=== PATIENT | male | born 1935 | race Caucasian/White ===

== ENCOUNTER 2016-11-19 13:17 | Outpatient (CLI) | payer MEDICARE, OTHER | END 2016-11-19 13:18 | disposition home or self-care (01) | DX: N40.0 Benign prostatic hyperplasia without lower urinary tract symptoms (principal) ==

== ENCOUNTER 2017-02-20 08:48 | Outpatient (CLI) | payer MEDICARE, OTHER | END 2017-02-20 08:49 | disposition home or self-care (01) | LOC: LAB.N 08:48 | PROVIDERS: ATTEND Internal Medicine Cardiovascular Disease | DX: I49.3 Ventricular premature depolarization (principal); I10 Essential (primary) hypertension; I47.2 Ventricular tachycardia; R00.1 Bradycardia, unspecified | CPT/HCPCS: 36415; 83735; 84443 ==

== ENCOUNTER 2017-04-07 09:24 | Outpatient (CLI) | payer MEDICARE, OTHER | END 2017-04-07 09:25 | disposition home or self-care (01) | LOC: SC 09:24 | PROVIDERS: ATTEND Internal Medicine Pulmonary Disease | DX: G47.30 Sleep apnea, unspecified (principal); G47.10 Hypersomnia, unspecified; R06.83 Snoring; G47.8 Other sleep disorders | CPT/HCPCS: 99203; G0463; 99212 ==

== ENCOUNTER 2017-05-04 19:24 | Outpatient (CLI) | payer MEDICARE, OTHER | END 2017-05-04 19:25 | disposition home or self-care (01) | LOC: SC 19:24 | PROVIDERS: ATTEND Internal Medicine Pulmonary Disease | DX: G47.33 Obstructive sleep apnea (adult) (pediatric) (principal); R00.1 Bradycardia, unspecified; G47.61 Periodic limb movement disorder | CPT/HCPCS: 95810 ==

== ENCOUNTER 2017-06-03 09:17 | Outpatient (CLI) | payer MEDICARE, OTHER | END 2017-06-03 09:18 | disposition home or self-care (01) | LOC: SC 09:17 | PROVIDERS: ATTEND Nurse Practitioner Family | DX: G47.33 Obstructive sleep apnea (adult) (pediatric) (principal); R00.1 Bradycardia, unspecified; I49.3 Ventricular premature depolarization; G47.61 Periodic limb movement disorder | CPT/HCPCS: 99214; G0463; 99212 ==

== ENCOUNTER 2017-08-06 08:40 | Outpatient (CLI) | payer MEDICARE, OTHER | END 2017-08-06 08:41 | disposition home or self-care (01) | LOC: SC 08:40 | PROVIDERS: ATTEND Nurse Practitioner Family | DX: G47.33 Obstructive sleep apnea (adult) (pediatric) (principal) | CPT/HCPCS: 99214; G0463; 99212 ==

== ENCOUNTER 2018-01-15 07:20 | Day surgery (SDC) | payer MEDICARE, OTHER ==
[2018-01-15] MEDS ORDERED: TIMOLOL 0.5% OPHTH DROPS ONE (07:22)
[2018-01-15] MEDS ORDERED: BRIMONIDINE 0.2% OPHTH DROPS 5 ML ONE (07:22)
[2018-01-15] MEDS ORDERED: BSS/LIDOCAINE/EPINEPHRINE 1 ML SYRINGE ONE ×2 (07:23→07:29)
[2018-01-15] MEDS ORDERED: KETOROLAC 0.45% OPHTH DROPS ONE (07:42)
[2018-01-15] MEDS ORDERED: PROPARACAINE 0.5% OPHTH DROPS 15 ML ONE (07:42)
[2018-01-15] MEDS ORDERED: PHENYLEPHRINE 2.5% OPHTH 2 ML DROPS ONE (07:42)
[2018-01-15] MEDS ORDERED: CYCLOPENTOLATE 1% OPHTH DROPS 2 ML ONE (07:42)
[2018-01-15] MEDS ORDERED: LACTATED RINGERS 500 ML IV ONE (07:56)
[2018-01-15] MEDS ORDERED: KETOROLAC 0.45% OPHTH DROPS LEFTEYE ONE (08:05)
[2018-01-15] MEDS ORDERED: CYCLOPENTOLATE 1% OPHTH DROPS 2 ML LEFTEYE ONE (08:05)
[2018-01-15] MEDS ORDERED: PHENYLEPHRINE 2.5% OPHTH 2 ML DROPS LEFTEYE ONE (08:05)
[2018-01-15] MEDS ORDERED: PROPARACAINE 0.5% OPHTH DROPS 15 ML LEFTEYE ONE ×2 (08:05→09:18)
[2018-01-15] MEDS ORDERED: BRIMONIDINE 0.2% OPHTH DROPS 5 ML OPTH ONE (09:15)
[2018-01-15] MEDS ORDERED: EPINEPHrine 1 MG/ML AMP IR ONE (09:15)
[2018-01-15] MEDS ORDERED: CHONDR SULF/HYALURONATE SYRINGE IO ONE (09:16)
[2018-01-15] MEDS ORDERED: BSS/LIDOCAINE/EPINEPHRINE 1 ML SYRINGE IO ONE ×2 (09:16)
[2018-01-15] MEDS ORDERED: TIMOLOL 0.5% OPHTH DROPS OPTH ONE (09:16)
[2018-01-15] MEDS ORDERED: TRIAMCIN/MOXIFLOX/VANCO 1 ML VIAL IO ONE ×2 (09:17)
[2018-01-15] MEDS ORDERED: MIDAZOLAM 2 MG/2 ML VIAL IVP ONE (09:30)
[2018-01-15 10:29] VITALS: BP 145/84
--- NOTE | 2018-01-15 10:29 | OPERATIVE REPORT ---
DATE OF SERVICE: 01/15/2018 Physician: Cornelio Zaragoza MD PREOPERATIVE DIAGNOSIS: Visually significant cataract, left eye. Cataract surgery was performed on the right eye in 2013 by another surgeon. POSTOPERATIVE DIAGNOSIS: Visually significant cataract, left eye. Cataract surgery was performed on the right eye in 2012 by another surgeon. PROCEDURE PERFORMED: Phacoemulsification with posterior chamber intraocular lens implant, left eye. SURGEON: Cornelio Zaragoza MD ANESTHESIA: Monitored anesthesia care. COMPLICATIONS: None. OPERATIVE INDICATIONS: This is an 82-year-old man with progressive vision loss in the left eye due to 2+ nuclear sclerotic and 2+ cortical cataract. Best corrected visual acuity was 20/25 with glare to 20/400 in the left eye. Indications for surgery are overall decrease in vision, difficulty reading, difficulty seeing street signs, difficulty driving in low light or at night, difficulty driving at night because of headlights from other vehicles. He was consented at length concerning risks and benefits of cataract surgery, after which he expressed desire to proceed with surgery. OPERATIVE PROCEDURE: The patient was taken into OR #3 and placed under monitored anesthesia care. A surgical time-out was conducted confirming correct patient, correct procedure and correct surgical site. He was placed under the LenSx laser and his right eye docked to the laser interface. The right eye was docked first because the patient wanted to correct astigmatism in the right eye first before performing Laser Assisted Cataract Surgery in the left eye with astigmatism correction in that eye. The laser performed 2 arcuate keratotomy incisions in about 4 seconds on the right eye cornea (non-penetrating). The laser was then docked to his left eye, at which time the laser performed the capsulotomy, lens softening, phaco wounds and arcuate keratotomy incisions. He was then moved to the operating microscope , given topical anesthesia and prepped and draped in the usual sterile fashion. The eye was entered at the 6 and 3 o'clock positions. Intracameral Shugarcaine was injected into the anterior chamber, followed by Viscoat. The capsulorrhexis flap created by the LenSx laser was removed from the anterior chamber, and the nucleus was hydrodissected and phacoemulsified. Cortex was evacuated using automated infusion and aspiration. Provisc was injected in capsular bag and a FIV566, 21.0 diopter toric intraocular lens was inserted into the bag and rotated to axis 154. This is a toric astigmatism correcting IOL. Approximately 0.8 mL of a mixture of triamcinolone, moxifloxacin, and vancomycin was injected subconjunctivally in the superior quadrant for infection , inflammation prophylaxis. I and A was used to evacuate the viscoelastic material. The eye was inflated to physiologic pressure using balanced salt solution and found to be watertight, and the lens was again verified to be at about axis 154. The patient was taken from the operating room in good condition and given postop instructions. TD: 01/15/2018 10:16 GERALD
== END 2018-01-15 07:21 | disposition home or self-care (01) ==
LOC: SDS 07:20
PROVIDERS: ATTEND Ophthalmology
PROC: 08RK3JZ Replacement of Left Lens with Synthetic Substitute, Percutaneous Approach (ICD-10-PCS; principal; 2018-01-15 08:30)
DX: H25.812 Combined forms of age-related cataract, left eye (principal); G47.30 Sleep apnea, unspecified; H52.202 Unspecified astigmatism, left eye
CPT/HCPCS: 66984; A9270; V2632; V2787

== ENCOUNTER 2018-01-21 08:50 | Outpatient (CLI) | payer MEDICARE, OTHER | END 2018-01-21 08:51 | disposition home or self-care (01) | LOC: SC 08:50 | PROVIDERS: ATTEND Nurse Practitioner Family | DX: G47.33 Obstructive sleep apnea (adult) (pediatric) (principal) | CPT/HCPCS: 99213 ==

== ENCOUNTER 2018-06-11 07:43 | Day surgery (SDC) | payer MEDICARE, OTHER ==
[~2018-06-11 07:43] MED LIST: BRIMONIDINE 0.2% OPHTH DROPS 5 ML ONE; BSS/LIDOCAINE/EPINEPHRINE 1 ML SYRINGE ONE; CYCLOPENTOLATE 1% OPHTH DROPS 2 ML ONE; EPINEPHrine 1 MG/ML AMP ONE; KETOROLAC 0.45% OPHTH DROPS ONE; PHENYLEPHRINE 2.5% OPHTH 2 ML DROPS ONE; PROPARACAINE 0.5% OPHTH DROPS 15 ML ONE; TIMOLOL 0.5% OPHTH DROPS ONE; TRIAMCIN/MOXIFLOX OPHTHALMIC 0.6 ML VIAL IO ONE; VANCOMYCIN OPHTHALMI 8MG/0.8ML 8 MG/0.8 ML SYRINGE IO ONE
[2018-06-11] MEDS ORDERED: TRIAMCINOLONE PF 40 MG/ML VIAL ONE (08:31)
--- NOTE | 2018-06-11 08:38 | ANESTHESIA ---
Pre-Anesthesia VS, & Labs - Diagnosis left eye vitreous chamber prolapse - Procedure left vitrectomy anterior chamber Vital Signs: 159/69 76 16 96% 36.3 Height 6 ft Weight (kg) 88.6 kg 6ft 88.6 kg - NPO >8 hours Home Medications and Allergies Home Medications: Ambulatory Orders No Known Home Medications 06/10/18 No Known Home Medications 06/10/18 Allergies/Adverse Reactions: Allergies Allergy/AdvReac Type Severity Reaction Status Date / Time hydrocodone bitartrate * Allergy Itching Verified 06/11/18 09:00 [From Vicodin] Anes History & Medical History - Anesthetic History Anesthesia Complications: reports: No previous complications - Medical History Cardiovascular: reports: Arrhythmia (patient states he was told he has PVC's), Other Pulmonary: reports: Sleep apnea (positioning device) Gastrointestinal: reports: Other Urinary: reports: None Musculoskeletal: reports: None Endocrine/Autoimmune: reports: None Skin: reports: Eczema, Other Smoking Status: Never smoker - Surgical History General: Colonoscopy, Other Eyes Ears Nose Throat (EENT): Cataracts Orthopedic: Hip replacement, Spine surgery (cervical fusion) Exam General: Alert, Oriented x3 Dental: WNL Mouth Openin Fingerbreadth Mallampati classification: II Thyromental Distance: less than 4 cm Respiratory: Lungs clear Cardiovascular: Regular rate, Normal S1, Normal S2 Mental/Cognitive Status: Alert/Oriented X3 Plan Anesthesia Type: MAC Consent for Procedure(s) Verified and Reviewed: Yes Code Status: Attempt Resuscitation ASA classification: 2-Mild systemic disease Is this case an emergency?: No
[2018-06-11] MEDS ORDERED: PROPARACAINE 0.5% OPHTH DROPS 15 ML LEFTEYE ONE (08:44)
[2018-06-11] MEDS ORDERED: PHENYLEPHRINE 2.5% OPHTH 2 ML DROPS LEFTEYE ONE (08:44)
[2018-06-11] MEDS ORDERED: KETOROLAC 0.45% OPHTH DROPS LEFTEYE ONE (08:44)
[2018-06-11] MEDS ORDERED: CYCLOPENTOLATE 1% OPHTH DROPS 2 ML LEFTEYE ONE (08:44)
[2018-06-11] MEDS ORDERED: LACTATED RINGERS 500 ML IV ONE (08:58)
[2018-06-11] MEDS ORDERED: MIDAZOLAM 2 MG/2 ML VIAL IVP ONE (09:30)
[2018-06-11] MEDS ORDERED: CARBACHOL 0.01% 1.5 ML VIAL IO ONE (09:31)
[2018-06-11] MEDS ORDERED: BSS/LIDOCAINE/EPINEPHRINE 1 ML SYRINGE IO ONE (09:32)
[2018-06-11] MEDS ORDERED: EPINEPHrine 1 MG/ML AMP IR ONE (09:32)
[2018-06-11] MEDS ORDERED: TIMOLOL 0.5% OPHTH DROPS OPTH ONE (09:32)
[2018-06-11] MEDS ORDERED: BRIMONIDINE 0.2% OPHTH DROPS 5 ML OPTH ONE (09:32)
[2018-06-11] MEDS ORDERED: CHONDR SULF/HYALURONATE SYRINGE IO ONE (09:32)
[2018-06-11 10:01] VITALS: BP 128/79
--- NOTE | 2018-06-11 13:04 | OPERATIVE REPORT ---
DATE OF SERVICE: 06/11/2018 Physician: Cornelio Zaragoza MD PREOPERATIVE DIAGNOSIS: Vitreous prolapse into the anterior chamber of the left eye, causing visual disturbance. POSTOPERATIVE DIAGNOSIS: Vitreous prolapse into the anterior chamber of the left eye, causing visual disturbance. PROCEDURE PERFORMED: Anterior vitrectomy of prolapsed vitreous in the left eye. SURGEON: Cornelio Zaragoza MD ANESTHESIA: Monitored anesthesia care. COMPLICATIONS: None. OPERATIVE INDICATIONS: This is an 83-year-old man who reports a constant visual disturbance, like looking through cotton candy, of the left eye since cataract surgery performed on January 15, 2018. With everything else being normal, to include lens clarity, retina and cornea, it was decided to perform an anterior vitrectomy to remove the vitreous, which was stained with pigment. He was consented at length concerning risks and benefits of anterior vitrectomy, after which he expressed a desire to proceed with surgery. DESCRIPTION OF PROCEDURE: The patient was taken into OR #3 and placed under monitored anesthesia care. A surgical timeout was conducted confirming correct patient, correct procedure, and correct surgical site. He was given topical anesthesia and then prepped and draped in usual sterile fashion. The eye was entered with a 1 mm keratome inferotemporally and another one superotemporally. Intracameral Shugarcaine was injected into the anterior chamber through one of these wounds. This was followed by a Triesence in order to stain the vitreous in the anterior chamber. The anterior chamber was flushed to leave just vitreous stained with Triesence. A vitrectomy device in bimanual mode was introduced. The vitreous was cut and aspirated, using first a cut-IA and then later IA-cut. Once the vitreous had been removed from the anterior chamber the wounds were hydrated. Also of note inferiorly, there were some strands of what looked like strands of capsular remnants. This must have been where the lens capsule had been disrupted and was probably the source of the vitreous. Miostat was injected into the anterior chamber to bring down the pupil. The IOL looked very stable and well centered. Approximately 0.8 mL of a mixture of triamcinolone, moxifloxacin, and vancomycin was injected subconjunctivally in the superior quadrant for infection and inflammation prophylaxis. The eye was tested to be at physiologic pressure and watertight. The patient was taken from the operating room in good condition and given postoperative instructions. TD: 06/11/2018 09:50 MTDD
== END 2018-06-11 07:44 | disposition home or self-care (01) ==
LOC: SDS 07:43
PROVIDERS: ATTEND Ophthalmology
PROC: 08B53ZZ Excision of Left Vitreous, Percutaneous Approach (ICD-10-PCS; principal; 2018-06-11 09:00)
DX: H43.02 Vitreous prolapse, left eye (principal); H02.20 Unspecified lagophthalmos; I49.3 Ventricular premature depolarization; G47.33 Obstructive sleep apnea (adult) (pediatric); Z85.038 Personal history of other malignant neoplasm of large intestine; Z98.42 Cataract extraction status, left eye
CPT/HCPCS: 67005; A9270; J3300; J3490

== ENCOUNTER 2018-06-30 09:25 | Outpatient (CLI) | payer MEDICARE, OTHER ==
[2018-06-30 12:20] LABS: BASOPHILS # (AUTO) 0.1 10^3/uL (0.0-0.1); EOSINOPHILS # (AUTO) 0.1 10^3/uL (0.0-0.7); EOSINOPHILS % (AUTO) 1.9 %; HGB - HEMOGLOBIN 13.2 g/dL (14.0-18.0); LYMPHOCYTES # (AUTO) 1.4 10^3/uL (1.5-3.5); LYMPHOCYTES % (AUTO) 21.9 %; MEAN CORPUSCULAR HEMOGLOBIN 32.4 pg (27.0-31.0); MEAN CORPUSCULAR HGB CONC 34.8 g/dL (32.0-36.0); MEAN CORPUSCULAR VOLUME 92.9 fL (80.0-94.0); MEAN PLATELET VOLUME 9.4 fL (7.4-11.4); MONOCYTES # (AUTO) 0.7 10^3/uL (0.0-1.0); MONOCYTES % (AUTO) 10.3 %; NEUTROPHILS # (AUTO) 4.2 10^3/uL (1.5-6.6); NEUTROPHILS % (AUTO) 64.9 %; PLT - PLATELET COUNT 174 10^3/uL (130-450); RED BLOOD COUNT 4.09 10^6/uL (4.70-6.10); RED CELL DISTRIBUTION WIDTH 14.2 % (12.0-15.0); WHITE BLOOD COUNT 6.5 x10^3/uL (4.8-10.8)
[2018-06-30 12:39] LABS: ALBUMIN 4.2 g/dL (3.2-5.5); ALBUMIN/GLOBULIN RATIO 1.6 (1.0-2.2); ALKALINE PHOSPHATASE 52 IU/L (42-121); ALT ALANINE AMINOTRANSFERASE 17 IU/L (10-60); AST ASPARTATE AMINOTRANSFERASE 23 IU/L (10-42); BILIRUBIN,TOTAL 0.6 mg/dL (0.2-1.0); BUN - BLOOD UREA NITROGEN 20 mg/dL (6-20); CALCIUM 9.2 mg/dL (8.5-10.3); CARBON DIOXIDE - CO2 26 mmol/L (21-32); CHLORIDE 104 mmol/L (101-111); CHOL/HDL RATIO 3.3 (<5.0); CHOLESTEROL 194 mg/dL; GFR - MDRD 71 (>89); GLUCOSE 103 mg/dL (70-100); HDL CHOLESTEROL 58 mg/dL; LDL CHOLESTEROL,CALCULATED 113 mg/dL; LDL/HDL RATIO 1.9 (<3.6); SODIUM 137 mmol/L (135-145); TOTAL PROTEIN 6.9 g/dL (6.7-8.2); VLDL CHOLESTEROL 23 mg/dL
[2018-06-30 12:45] LABS: PSA FREE 0.15 ng/mL (0.16-2.81)
[2018-06-30 12:46] LABS: PSA TOTAL 0.49 ng/mL (0.000-2.000)
== END 2018-06-30 09:26 | disposition home or self-care (01) ==
LOC: LAB.N 09:25
PROVIDERS: ATTEND Family Medicine
DX: D64.9 Anemia, unspecified (principal); I10 Essential (primary) hypertension; Z85.038 Personal history of other malignant neoplasm of large intestine; R00.1 Bradycardia, unspecified; N40.0 Benign prostatic hyperplasia without lower urinary tract symptoms
CPT/HCPCS: 36415; 80053; 80061; 82378; 83721; 84154; 84443; 85025

== ENCOUNTER 2019-03-26 12:03 | Outpatient (CLI) | payer MEDICARE, OTHER ==
--- NOTE | 2019-03-27 17:05 | MRI Report ---
Reason: HX OF HIP REPLACEMENT, LEFT, HIP JOINT PAIN, LEFT Procedure Date: 03/26/2019 Accession Number: [id number] / [id number] Procedure: MRI - Hip LT W/O CPT Code: FULL RESULT: EXAM: LEFT HIP MRI WITHOUT CONTRAST EXAM DATE: 03/26/2019 01:09 PM. CLINICAL HISTORY: History of hip replacement, left. Hip joint pain, left. COMPARISON: LT HIP 06/06/2006 6:02 PM. TECHNIQUE: Multiplanar, multisequence T1-weighted and fluid-sensitive, small ptord-sb-cwjo sequences of the hip and large gwhof-ts-hmbc sequences of the pelvis without contrast. Other: None. FINDINGS: Bones: Left hip arthroplasty with moderate metallic artifact. Visualized bony pelvis and proximal femora otherwise appear normal within limits of metal artifact. No fracture or marrow edema. Left Hip: Alignment normal within limits of metal artifact. Visualized bony structures around the edges of the metal artifact appear unremarkable. Left greater trochanter bursitis with focal fluid signal near the greater trochanter bursa. Other Joints: Mild right hip degenerative joint disease and greater trochanteric bursitis. Moderate L5-S1 degenerative disk disease. Musculature: No edema or fatty atrophy. The gluteus medius and minimus tendons are normal. The visualized hamstring tendons are normal. The ischiofemoral space is normal. Pelvic Cavity: The visualized viscera are unremarkable. No lymphadenopathy. No free fluid in the pelvis. Other: The visualized sciatic nerves are unremarkable. No bursitis. The subcutaneous tissues are unremarkable. IMPRESSION: 1. Left hip arthroplasty in normal alignment within limits of metal artifact. No fracture or marrow edema in the visualized adjacent bone. 2. Mild bilateral greater trochanteric bursitis. RADIA
== END 2019-03-26 12:04 | disposition home or self-care (01) ==
LOC: DI 12:03
PROVIDERS: ATTEND Physician Assistant Medical
DX: M70.62 Trochanteric bursitis, left hip (principal); Z96.642 Presence of left artificial hip joint

== ENCOUNTER 2019-04-23 09:56 | Emergency (ER) | payer MEDICARE, OTHER ==
[2019-04-23 10:19] LABS: BASOPHILS # (AUTO) 0.1 10^3/uL (0.0-0.1); BASOPHILS % (AUTO) 1.4 %; EOSINOPHILS # (AUTO) 0.1 10^3/uL (0.0-0.7); EOSINOPHILS % (AUTO) 2.5 %; HGB - HEMOGLOBIN 13.3 g/dL (14.0-18.0); LYMPHOCYTES # (AUTO) 1.4 10^3/uL (1.5-3.5); LYMPHOCYTES % (AUTO) 25.3 %; MEAN CORPUSCULAR HEMOGLOBIN 32.2 pg (27.0-31.0); MEAN CORPUSCULAR VOLUME 94.7 fL (80.0-94.0); MEAN PLATELET VOLUME 10.9 fL (7.4-11.4); MONOCYTES # (AUTO) 0.6 10^3/uL (0.0-1.0); NEUTROPHILS # (AUTO) 3.4 10^3/uL (1.5-6.6); NEUTROPHILS % (AUTO) 59.6 %; PLT - PLATELET COUNT 171 10^3/uL (130-450); RED BLOOD COUNT 4.13 10^6/uL (4.70-6.10); RED CELL DISTRIBUTION WIDTH 13.5 % (12.0-15.0); WHITE BLOOD COUNT 5.7 x10^3/uL (4.8-10.8)
[2019-04-23 10:30] LABS: ALBUMIN 4.3 g/dL (3.2-5.5); ALBUMIN/GLOBULIN RATIO 1.7 (1.0-2.2); BILIRUBIN,TOTAL 0.9 mg/dL (0.2-1.0); CALCIUM 9.7 mg/dL (8.5-10.3); TOTAL PROTEIN 6.9 g/dL (6.7-8.2)
--- NOTE | 2019-04-23 10:46 | XRAY Report ---
Reason: chest pain Procedure Date: 04/23/2019 Accession Number: [id number] / [id number] Procedure: XR - Chest 1 View X-Ray CPT Code: 26882 FULL RESULT: EXAM: CHEST RADIOGRAPHY EXAM DATE: 04/23/2019 10:15 AM. CLINICAL HISTORY: Chest pain. COMPARISON: Thoracic spine radiographs 02/16/2015 12:09 PM Chest radiographs 10/06/2013 XR CHEST PA AND LAT 02/26/2011 8:52 AM. TECHNIQUE: 1 view. FINDINGS: Lungs/Pleura: No focal opacities evident. No pleural effusion. No pneumothorax. Mediastinum: Within exam limitations, the cardiac contour is normal. There is stable tortuous contour of the descending thoracic aorta. Other: No acute osseous abnormality. IMPRESSION: No acute cardiopulmonary abnormality. RADIA
[2019-04-23] MEDS ORDERED: LIDOCAINE VISCOUS 2% 15 ML UDC MM STA (10:53)
[2019-04-23] MEDS ORDERED: MAG HYDROX/AL HYDROX/SIMETH 30 ML UDC PO STA (10:53)
--- NOTE | 2019-04-23 11:26 | ED Physician Documentation ---
PD HPI CHEST PAIN - Stated complaint Stated Complaint: CHEST PAIN - Chief complaint Chief Complaint: Cardiac - History obtained from History obtained from: Patient - History of Present Illness Timing - onset: Yesterday Timing - onset during: Rest Timing - details: Still present, Waxing and waning Pain level now: 3 Quality: Aching Location: Substernal Worsened by: Inspiration Similar symptoms before: Diagnosis ("heartburn") - Treatment prior to arrival Treatment prior to arrival: Tums without relief. - Additional information Additional information: The patient is an 84-year-old male with history of PVCs, gastroesophageal reflux disease, and sleep apnea who presents with a dull substernal chest aching that started yesterday, and continues this morning. He describes it as mild, currently rated 3 out of 10 in severity. It is worse with deep inspiration. It feels like previous episodes of "heartburn," and he has tried taking Tums, witho ut relief. He denies associated shortness of breath, diaphoresis, nausea or vomiting. He denies cough or fever. Review of Systems Constitutional: denies: Fever, Fatigue Ears: denies: Tinnitus/ringing Nose: denies: Congestion Throat: denies: Sore throat Cardiac: reports: Chest pain / pressure Respiratory: denies: Dyspnea, Cough GI: denies: Abdominal Pain, Nausea, Vomiting : denies: Dysuria Skin: denies: Rash Musculoskeletal: denies: Neck pain, Back pain, Extremity swelling Neurologic: denies: Focal weakness, Numbness, Headache PD PAST MEDICAL HISTORY - Past Medical History Past Medical History: Yes Cardiovascular: Arrhythmia, Other Respiratory: Sleep apnea Endocrine/Autoimmune: None GI: GERD, Other : None HEENT: Chronic vision loss Psych: None Musculoskeletal: None Derm: Eczema, Other - Past Surgical History Past Surgical History: Yes General: Colonoscopy, Other Ortho: Hip replacement, Spine surgery HEENT: Cataracts - Present Medications Home Medications: Ambulatory Orders Medication Instructions Recorded Confirmed No Known Home Medications 06/10/18 04/23/19 - Allergies Allergies/Adverse Reactions: Allergies Allergy/AdvReac Type Severity Reaction Status Date / Time hydrocodone bitartrate * Allergy Itching Verified 04/23/19 10:05 [From Vicodin] - Social History Does the pt smoke?: No Smoking Status: Never smoker Does the pt drink ETOH?: No Does the pt have substance abuse?: No PD ED PE NORMAL - Vitals Vital signs reviewed: Yes (Systolic hypertension initially.) - General General: Alert and oriented X 3, Well developed/nourished - HEENT HEENT: Atraumatic, Moist mucous membranes - Neck Neck: No adenopathy, No JVD - Cardiac Cardiac: Other (Mostly regular rate and rhythm, with frequent PVCs.) - Respiratory Respiratory: No respiratory distress, Clear bilaterally - Abdomen Abdomen: Soft, Non tender - Back Back: No CVA TTP - Derm Derm: No rash - Extremities Extremities: No edema, No calf tenderness / cord - Neuro Neuro: Alert and oriented X 3, No motor deficit, Normal speech Results - Vitals Vitals: Oxygen O2 Source Room air - EKG (time done) 10:03 Rate: Rate (enter#) (51) Rhythm: NSR [place]: LAD, Anterior hemiblock Intervals: RBBB Ischemia: Normal ST segments Compare to prior EKG: Old EKG unavailable Computer interpretation: Agree with computer - Labs Labs: Laboratory Tests 04/23/19 04/23/19 04/23/19 10:06 10:06 11:00 WBC 5.7 RBC 4.13 L Hgb 13.3 L Hct 39.1 L MCV 94.7 H MCH 32.2 H MCHC 34.0 RDW 13.5 Plt Count 171 MPV 10.9 Neut # (Auto) 3.4 Lymph # (Auto) 1.4 L Izard # (Auto) 0.6 Eos # (Auto) 0.1 Baso # (Auto) 0.1 Absolute Nucleated RBC 0.00 Nucleated RBC % 0.0 Sodium 140 Potassium 4.0 Chloride 104 Carbon Dioxide 23 Anion Gap 13.0 BUN 20 Creatinine 1.0 Estimated GFR (MDRD) 71 L Glucose 168 H Calcium 9.7 Total Bilirubin 0.9 AST 24 ALT 19 Alkaline Phosphatase 42 Troponin I High Sens 5.6 Total Protein 6.9 Albumin 4.3 Globulin 2.6 Albumin/Globulin Ratio 1.7 Lipase 24 - Rads (name of study) CXR Radiology: Prelim report reviewed, EMP read contemporaneously, See rad report (No acute cardiopulmonary abnormality.) PD MEDICAL DECISION MAKING - ED course Complexity details: reviewed old records, reviewed results, re-evaluated patient, considered differential, d/w patient, d/w family ED course: The patient's presentation is most consistent with gastroesophageal reflux disease. I doubt cardiac ischemia given his duration of symptoms and a negative high sensitivity troponin, as well as lack of ischemic abnormalities on his EKG. His chest x-ray appears normal, revealing no evidence of pneumothorax, pneumonia, and I doubt pulmonary embolus. Treatment in the emergency department included administration of GI cocktail, which completely relieved his symptoms. I discussed with him and his results of his workup, presumptive diagnosis, outpatient follow-up, as well as potentially worrisome signs or symptoms that should prompt reevaluation in the emergency department. Departure - Departure Disposition: 01 Home, Self Care Clinical Impression: Gastroesophageal reflux disease Qualifiers: Esophagitis presence: esophagitis presence not specified Qualified Code(s): K21.9 - Gastro-esophageal reflux disease without esophagitis Condition: Stable Instructions: ED GERD Follow-Up: Erlin Forrest PA-C [Primary Care Provider] - Yonathan Platt MD [Physician No Access] - Comments: You can use liquid antacid, such as Maalox or Mylanta, if you develop recurrent symptoms. Minimize coffee, oral, or exacerbating foods. Follow-up with your primary physician or your energy attorney as planned. Return to the emergency department if you develop recurrent or increasing chest pain, shortness of breath, or otherwise worsening symptoms. Discharge Date/Time: 04/23/19 12:54
[2019-04-23 12:38] VITALS: BP 136/76
== END 2019-04-23 12:54 | disposition home or self-care (01) ==
LOC: ED 09:56
DX: K21.9 Gastro-esophageal reflux disease without esophagitis (principal); I49.3 Ventricular premature depolarization; I45.2 Bifascicular block; G47.30 Sleep apnea, unspecified
CPT/HCPCS: 36415; 71045; 80053; 83690; 84484; 85025; 93005; 99284; A9270

== ENCOUNTER 2020-07-17 07:00 | Outpatient (CLI) | payer MEDICARE, OTHER | END 2020-07-17 23:59 | disposition home or self-care (01) | LOC: COV 07:00 | PROVIDERS: ATTEND Nurse Practitioner | DX: Z20.828 Contact with and (suspected) exposure to other viral communicable diseases (principal) ==

== ENCOUNTER 2020-11-20 16:40 | Outpatient (CLI) | payer MEDICARE, OTHER | END 2020-11-20 16:41 | disposition home or self-care (01) | LOC: COV 16:40 | PROVIDERS: ATTEND Internal Medicine Gastroenterology | DX: Z01.812 Encounter for preprocedural laboratory examination (principal); Z20.822 Contact with and (suspected) exposure to COVID-19 ==

== ENCOUNTER 2021-09-04 08:33 | Outpatient (CLI) | payer MEDICARE, OTHER ==
[2021-09-04 12:23] LABS: BASOPHILS # (AUTO) 0.1 10^3/uL (0.0-0.1); BASOPHILS % (AUTO) 1.6 %; EOSINOPHILS # (AUTO) 0.2 10^3/uL (0.0-0.7); EOSINOPHILS % (AUTO) 3.3 %; HGB - HEMOGLOBIN 14.4 g/dL (14.0-18.0); LYMPHOCYTES # (AUTO) 1.6 10^3/uL (1.5-3.5); LYMPHOCYTES % (AUTO) 26.2 %; MEAN CORPUSCULAR HEMOGLOBIN 32.1 pg (27.0-31.0); MEAN CORPUSCULAR HGB CONC 33.5 g/dL (32.0-36.0); MEAN PLATELET VOLUME 11.1 fL (7.4-11.4); MONOCYTES # (AUTO) 0.7 10^3/uL (0.0-1.0); NEUTROPHILS # (AUTO) 3.4 10^3/uL (1.5-6.6); NEUTROPHILS % (AUTO) 56.7 %; PLT - PLATELET COUNT 190 10^3/uL (130-450); RED BLOOD COUNT 4.48 10^6/uL (4.70-6.10); RED CELL DISTRIBUTION WIDTH 13.6 % (12.0-15.0); WHITE BLOOD COUNT 6.1 x10^3/uL (4.8-10.8)
[2021-09-04 12:30] LABS: ALBUMIN 4.6 g/dL (3.2-5.5); ALBUMIN/GLOBULIN RATIO 1.6 (1.0-2.2); ALKALINE PHOSPHATASE 44 IU/L (42-121); ALT ALANINE AMINOTRANSFERASE 16 IU/L (10-60); AST ASPARTATE AMINOTRANSFERASE 23 IU/L (10-42); BILIRUBIN,TOTAL 0.9 mg/dL (0.2-1.0); BUN - BLOOD UREA NITROGEN 19 mg/dL (6-20); CALCIUM 9.5 mg/dL (8.5-10.3); CARBON DIOXIDE - CO2 27 mmol/L (21-32); CHLORIDE 100 mmol/L (101-111); CHOL/HDL RATIO 3.6 (<5.0); CHOLESTEROL 231 mg/dL; GFR - MDRD 71 (>89); GLUCOSE 117 mg/dL (70-100); HDL CHOLESTEROL 65 mg/dL; LDL CHOLESTEROL,CALCULATED 144 mg/dL; LDL/HDL RATIO 2.2 (<3.6); POTASSIUM 4.2 mmol/L (3.5-5.0); SODIUM 135 mmol/L (135-145); TOTAL PROTEIN 7.5 g/dL (6.7-8.2); TRIGLYCERIDES 108 mg/dL; VLDL CHOLESTEROL 22 mg/dL
[2021-09-04 12:42] LABS: THYROID STIMULATING HORMONE 2.48 uIU/mL (0.34-5.60)
== END 2021-09-04 08:34 | disposition home or self-care (01) ==
LOC: LAB.N 08:33
PROVIDERS: ATTEND Family Medicine
DX: Z00.00 Encounter for general adult medical examination without abnormal findings (principal)
CPT/HCPCS: 36415; 80053; 80061; 83721; 84443; 85025

== ENCOUNTER 2022-02-01 13:57 | Outpatient (CLI) | payer MEDICARE, OTHER ==
[2022-02-01 18:55] LABS: INR 1.1 (0.8-1.2); PT - PROTHROMBIN TIME 12.2 secs (9.9-12.6)
[2022-02-01 19:04] LABS: ALBUMIN 4.5 g/dL (3.2-5.5); ALBUMIN/GLOBULIN RATIO 1.8 (1.0-2.2); BILIRUBIN,TOTAL 0.8 mg/dL (0.2-1.0); CALCIUM 9.5 mg/dL (8.5-10.3); CREATININE 1.1 mg/dL (0.6-1.2); MAGNESIUM 2.3 mg/dL (1.7-2.8); POTASSIUM 4.1 mmol/L (3.5-5.0)
== END 2022-02-01 13:58 | disposition home or self-care (01) ==
LOC: LAB.N 13:57
PROVIDERS: ATTEND Internal Medicine Cardiovascular Disease
DX: I10 Essential (primary) hypertension (principal); R23.3 Spontaneous ecchymoses
CPT/HCPCS: 36415; 80053; 83735; 84443; 85610

== ENCOUNTER 2022-03-22 08:45 | Outpatient (CLI) | payer MEDICARE, OTHER ==
[2022-03-22 12:50] LABS: CHOL/HDL RATIO 3.2 (<5.0); CHOLESTEROL 200 mg/dL; HDL CHOLESTEROL 62 mg/dL; LDL CHOLESTEROL,CALCULATED 122 mg/dL; TRIGLYCERIDES 78 mg/dL; VLDL CHOLESTEROL 16 mg/dL
== END 2022-03-22 08:46 | disposition home or self-care (01) ==
LOC: LAB.N 08:45
PROVIDERS: ATTEND Nurse Practitioner Family
DX: I65.23 Occlusion and stenosis of bilateral carotid arteries (principal)
CPT/HCPCS: 36415; 80061; 83721

== ENCOUNTER 2022-09-04 08:14 | Outpatient (CLI) | payer MEDICARE, OTHER ==
[2022-09-04 19:38] LABS: BASOPHILS # (AUTO) 0.1 10^3/uL (0.0-0.1); BASOPHILS % (AUTO) 1.3 %; EOSINOPHILS # (AUTO) 0.2 10^3/uL (0.0-0.7); HCT - HEMATOCRIT 41.1 % (42.0-52.0); HGB - HEMOGLOBIN 13.2 g/dL (14.0-18.0); LYMPHOCYTES # (AUTO) 1.6 10^3/uL (1.5-3.5); LYMPHOCYTES % (AUTO) 25.8 %; MEAN CORPUSCULAR HEMOGLOBIN 31.4 pg (27.0-31.0); MEAN CORPUSCULAR HGB CONC 32.1 g/dL (32.0-36.0); MEAN CORPUSCULAR VOLUME 97.6 fL (80.0-94.0); MEAN PLATELET VOLUME 10.9 fL (7.4-11.4); MONOCYTES # (AUTO) 0.7 10^3/uL (0.0-1.0); MONOCYTES % (AUTO) 11.7 %; NEUTROPHILS # (AUTO) 3.7 10^3/uL (1.5-6.6); NEUTROPHILS % (AUTO) 57.9 %; PLT - PLATELET COUNT 171 10^3/uL (130-450); RED BLOOD COUNT 4.21 10^6/uL (4.70-6.10); RED CELL DISTRIBUTION WIDTH 14.5 % (12.0-15.0); WHITE BLOOD COUNT 6.3 x10^3/uL (4.8-10.8)
[2022-09-04 20:28] LABS: CHOL/HDL RATIO 2.2 (<5.0); CHOLESTEROL 152 mg/dL; HDL CHOLESTEROL 68 mg/dL; LDL CHOLESTEROL,CALCULATED 71 mg/dL; TRIGLYCERIDES 66 mg/dL; VLDL CHOLESTEROL 13 mg/dL
== END 2022-09-04 08:15 | disposition home or self-care (01) ==
LOC: LAB.N 08:14
PROVIDERS: ATTEND Internal Medicine Cardiovascular Disease
DX: I10 Essential (primary) hypertension (principal); E78.5 Hyperlipidemia, unspecified
CPT/HCPCS: 36415; 80061; 83721; 85025

== ENCOUNTER 2023-01-22 08:43 | Outpatient (CLI) | payer MEDICARE, OTHER ==
[2023-01-22 11:44] LABS: BASOPHILS # (AUTO) 0.1 10^3/uL (0.0-0.1); BASOPHILS % (AUTO) 1.1 %; EOSINOPHILS # (AUTO) 0.1 10^3/uL (0.0-0.7); EOSINOPHILS % (AUTO) 1.9 %; HCT - HEMATOCRIT 39.2 % (42.0-52.0); HGB - HEMOGLOBIN 12.8 g/dL (14.0-18.0); LYMPHOCYTES # (AUTO) 1.5 10^3/uL (1.5-3.5); LYMPHOCYTES % (AUTO) 32.6 %; MEAN CORPUSCULAR HGB CONC 32.7 g/dL (32.0-36.0); MEAN PLATELET VOLUME 11.1 fL (7.4-11.4); MONOCYTES # (AUTO) 0.3 10^3/uL (0.0-1.0); MONOCYTES % (AUTO) 7.2 %; NEUTROPHILS # (AUTO) 2.7 10^3/uL (1.5-6.6); PLT - PLATELET COUNT 167 10^3/uL (130-450); WHITE BLOOD COUNT 4.7 x10^3/uL (4.8-10.8)
[2023-01-22 12:46] LABS: ALBUMIN 4.5 g/dL (3.2-5.5); ALBUMIN/GLOBULIN RATIO 1.6 (1.0-2.2); ALKALINE PHOSPHATASE 45 IU/L (42-121); ALT ALANINE AMINOTRANSFERASE 19 IU/L (10-60); AST ASPARTATE AMINOTRANSFERASE 26 IU/L (10-42); BILIRUBIN,TOTAL 1.4 mg/dL (0.2-1.0); BUN - BLOOD UREA NITROGEN 22 mg/dL (6-20); CALCIUM 9.2 mg/dL (8.5-10.3); CARBON DIOXIDE - CO2 28 mmol/L (21-32); CHLORIDE 107 mmol/L (101-111); CHOL/HDL RATIO 2.5 (<5.0); CHOLESTEROL 168 mg/dL; GFR - MDRD 71 (>89); GLUCOSE 117 mg/dL (70-100); HDL CHOLESTEROL 67 mg/dL; LDL CHOLESTEROL,CALCULATED 91 mg/dL; LDL/HDL RATIO 1.4 (<3.6); POTASSIUM 4.3 mmol/L (3.5-5.0); SODIUM 139 mmol/L (135-145); TOTAL PROTEIN 7.3 g/dL (6.7-8.2); TRIGLYCERIDES 50 mg/dL; VLDL CHOLESTEROL 10 mg/dL
[2023-01-22 12:49] LABS: THYROID STIMULATING HORMONE 1.58 uIU/mL (0.34-5.60)
== END 2023-01-22 08:44 | disposition home or self-care (01) ==
LOC: LAB.N 08:43
PROVIDERS: ATTEND Family Medicine
DX: Z00.00 Encounter for general adult medical examination without abnormal findings (principal); E78.5 Hyperlipidemia, unspecified
CPT/HCPCS: 36415; 80053; 80061; 83721; 84443; 85025

== ENCOUNTER 2023-02-28 08:30 | Outpatient (CLI) | payer MEDICARE, OTHER ==
--- NOTE | 2023-02-28 10:39 | XRAY Report ---
PROCEDURE: Chest 2 View X-Ray INDICATIONS: COUGH, DYSPNEA TECHNIQUE: 2 views of the chest were acquired. COMPARISON: 04/23/2019 FINDINGS: Surgical changes and devices: None. Lungs and pleura: Lungs are clear. No pleural effusions. Mediastinum: The aorta is tortuous, appearing similar to prior. Bones and chest wall: No suspicious bony lesions. Overlying soft tissues appear unremarkable. IMPRESSION: No acute radiographic abnormality. Reviewed by: Jose Velázquez MD on 02/28/2023 10:37 AM PDT Approved by: Jose Velázquez MD on 02/28/2023 10:37 AM PDT Station ID: [id number]
[2023-02-28 11:54] LABS: BASOPHILS % (AUTO) 0.2 %; EOSINOPHILS % (AUTO) 3.6 %; HCT - HEMATOCRIT 32.7 % (42.0-52.0); HGB - HEMOGLOBIN 11.1 g/dL (14.0-18.0); LYMPHOCYTES % (AUTO) 11.5 %; MEAN CORPUSCULAR HEMOGLOBIN 33.2 pg (27.0-31.0); MEAN CORPUSCULAR HGB CONC 33.9 g/dL (32.0-36.0); MEAN CORPUSCULAR VOLUME 97.9 fL (80.0-94.0); MEAN PLATELET VOLUME 11.2 fL (7.4-11.4); NEUTROPHILS % (AUTO) 81.7 %; PLT - PLATELET COUNT 117 10^3/uL (130-450); RED BLOOD COUNT 3.34 10^6/uL (4.70-6.10); RED CELL DISTRIBUTION WIDTH 14.4 % (12.0-15.0)
[2023-02-28 12:03] LABS: ABNORMAL LYMPHS % (MANUAL) 0 %
[2023-02-28 14:04] LABS: BAND NEUTROPHILS % (MANUAL) 11 %; EOSINOPHILS # (MANUAL) 0.1 10^3/uL (0-0.7); LYMPHOCYTES # (MANUAL) 0.6 10^3/uL (1.5-3.5); LYMPHOCYTES % (MANUAL) 11 %; MONOCYTES # (MANUAL) 0.2 10^3/uL (0.0-1.0); NEUTROPHILS # (MANUAL) 4.1 10^3/uL (1.5-6.6); PLATELET MORPHOLOGY NORMAL APPEARANCE (NORMAL); RBC MORPHOLOGY (MULTIPLE) NORMAL APPEARANCE (NORMAL); REACTIVE LYMPHS % (MANUAL) 1 %
[2023-02-28 14:05] LABS: DIFFERENTIAL COMMENT MANUAL DIFFERENTIAL; PLATELET ESTIMATE, MANUAL NORMAL (130-450,000) (NORMAL)
== END 2023-02-28 08:45 | disposition home or self-care (01) ==
LOC: DI.N 08:30
PROVIDERS: ATTEND Family Medicine
DX: R05.9 Cough, unspecified (principal); M60.9 Myositis, unspecified
CPT/HCPCS: 36415; 82550; 85025; 85651

== ENCOUNTER 2023-06-06 10:27 | Outpatient (CLI) | payer MEDICARE, OTHER ==
--- NOTE | 2023-06-06 10:56 | XRAY Report ---
PROCEDURE: Shoulder 2 View RT INDICATIONS: SHOULDER PAIN,RIGHT TECHNIQUE: 2 views of the shoulder were acquired. COMPARISON: None. FINDINGS: Bones: No fractures or dislocations. No suspicious bony lesions. Visualized ribs appear intact. AC joint degenerative change. Glenohumeral joint not seen en face. Soft tissues: No suspicious soft tissue calcifications. The visualized lungs are within normal limi ts. IMPRESSION: Degenerative change. No acute bony abnormality. If pain persists with conservative management, consid er repeat radiographs in 10-14 days or cross-sectional imaging. Reviewed by: Carlito Bolton MD on 06/06/2023 10:55 AM PDT Approved by: Carlito Bolton MD on 06/06/2023 10:55 AM PDT Station ID: [id number]
== END 2023-06-06 10:28 | disposition home or self-care (01) ==
LOC: DI 10:27
PROVIDERS: ATTEND Family Medicine
DX: M19.011 Primary osteoarthritis, right shoulder (principal)

== ENCOUNTER 2023-06-18 10:45 | Outpatient (CLI) | payer MEDICARE, OTHER ==
[2023-06-18 17:59] LABS: BASOPHILS % (AUTO) 0.5 %; LYMPHOCYTES % (AUTO) 78.2 %; MEAN CORPUSCULAR HEMOGLOBIN 38.5 pg (27.0-31.0); MEAN CORPUSCULAR HGB CONC 33.5 g/dL (32.0-36.0); MEAN CORPUSCULAR VOLUME 114.8 fL (80.0-94.0); MEAN PLATELET VOLUME 10.9 fL (7.4-11.4); MONOCYTES % (AUTO) 9.1 %; NEUTROPHILS % (AUTO) 10.7 %; PLT - PLATELET COUNT 94 10^3/uL (130-450); RED BLOOD COUNT 1.69 10^6/uL (4.70-6.10); RED CELL DISTRIBUTION WIDTH 19.2 % (12.0-15.0)
[2023-06-18 18:13] LABS: ALBUMIN 4.1 g/dL (3.2-5.5); ALBUMIN/GLOBULIN RATIO 1.6 (1.0-2.2); BILIRUBIN,TOTAL 0.5 mg/dL (0.2-1.0); CREATININE 0.8 mg/dL (0.6-1.3); POTASSIUM 4.2 mmol/L (3.5-4.5); TOTAL PROTEIN 6.7 g/dL (6.4-8.9)
[2023-06-18 18:16] LABS: HCT - HEMATOCRIT 19.4 % (42.0-52.0); HGB - HEMOGLOBIN 6.5 g/dL (14.0-18.0)
[2023-06-18 18:18] LABS: ABNORMAL LYMPHS % (MANUAL) 0 %; BAND NEUTROPHILS % (MANUAL) 0 %
[2023-06-18 18:30] LABS: LYMPHOCYTES # (MANUAL) 1.6 10^3/uL (1.5-3.5); LYMPHOCYTES % (MANUAL) 78 %; MONOCYTES # (MANUAL) 0.2 10^3/uL (0.0-1.0); THYROID STIMULATING HORMONE 1.3 uIU/mL (0.34-5.60)
[2023-06-18 18:32] LABS: DIFFERENTIAL COMMENT MANUAL DIFFERENTIAL; NEUTROPHILS # (MANUAL) 0.2 10^3/uL (1.5-6.6); PLATELET ESTIMATE, MANUAL DECREASED (<130,000) (NORMAL); PLATELET MORPHOLOGY NORMAL APPEARANCE (NORMAL); RBC MORPHOLOGY (MULTIPLE) 2+ ANISOCYTOSIS (NORMAL)
== END 2023-06-18 11:00 | disposition home or self-care (01) ==
LOC: LAB.N 10:45
PROVIDERS: ATTEND Family Medicine
DX: R53.83 Other fatigue (principal)
CPT/HCPCS: 36415; 80053; 84443; 85025

== ENCOUNTER 2023-06-24 14:13 | Outpatient (CLI) | payer MEDICARE, OTHER ==
[2023-06-24 17:49] LABS: BASOPHILS % (AUTO) 0.4 %; EOSINOPHILS % (AUTO) 1.3 %; HCT - HEMATOCRIT 24.6 % (42.0-52.0); HGB - HEMOGLOBIN 8.2 g/dL (14.0-18.0); LYMPHOCYTES # (AUTO) 1.7 10^3/uL (1.5-3.5); MEAN CORPUSCULAR HEMOGLOBIN 35.7 pg (27.0-31.0); MEAN CORPUSCULAR HGB CONC 33.3 g/dL (32.0-36.0); MEAN PLATELET VOLUME 10.8 fL (7.4-11.4); MONOCYTES # (AUTO) 0.3 10^3/uL (0.0-1.0); MONOCYTES % (AUTO) 14.1 %; NEUTROPHILS % (AUTO) 8.9 %; PLT - PLATELET COUNT 82 10^3/uL (130-450); RED CELL DISTRIBUTION WIDTH 18.3 % (12.0-15.0); WHITE BLOOD COUNT 2.3 x10^3/uL (4.8-10.8)
[2023-06-24 18:43] LABS: NEUTROPHILS # (AUTO) 0.2 10^3/uL (1.5-6.6)
[2023-06-24 18:49] LABS: PLATELET ESTIMATE, MANUAL DECREASED (<130,000) (NORMAL); PLATELET MORPHOLOGY NORMAL APPEARANCE (NORMAL); SLIDE REVIEW? Indicated
[2023-06-24 18:50] LABS: RBC MORPHOLOGY (MULTIPLE) 1+ ANISOCYTOSIS (NORMAL)
== END 2023-06-24 14:14 | disposition home or self-care (01) ==
LOC: LAB.N 14:13
PROVIDERS: ATTEND Family Medicine
DX: D61.818 Other pancytopenia (principal); R53.83 Other fatigue
CPT/HCPCS: 36415; 85025

== ENCOUNTER 2023-07-09 16:37 | Outpatient (CLI) | payer MEDICARE, OTHER | END 2023-07-09 16:38 | disposition home or self-care (01) | LOC: LAB 16:37 | PROVIDERS: ATTEND Internal Medicine | DX: D61.818 Other pancytopenia (principal) ==

== ENCOUNTER 2023-07-28 15:28 | Outpatient (CLI) | payer MEDICARE, OTHER | END 2023-07-28 15:29 | disposition home or self-care (01) | LOC: LAB 15:28 | PROVIDERS: ATTEND Internal Medicine | DX: Z53.9 Procedure and treatment not carried out, unspecified reason (principal) ==

== ENCOUNTER 2023-08-28 10:53 | Emergency (ER) | payer MEDICARE, OTHER ==
[2023-08-28 11:25] VITALS: BP 108/56; O2SAT 100
--- NOTE | 2023-08-28 12:16 | ED Physician Documentation ---
History of Present Illness - Stated complaint Stated Complaint: SOA - Chief complaint Chief Complaint: Allergic Rx - History obtained from History obtained from: Patient - History of Present Illness Pain level max: 0 Pain level now: 0 - Additonal information Additional information: Patient is an 88-year-old male with a history of acute myeloid leukemia. He was getting a blood transfusion today at the [facility]. The [facility] [place] [facility] sent him here. Unclear exactly why he was sent here. The patient states he does not know. The patient states that they told him he looked short of breath. He told them he is always short of breath and his breathing is no different than his usual breathing. He has no fever, cough, congestion. No rash. No chest pain. Patient has no complaints. He is requesting to go back to the [facility] [place] [facility] clinic to finish his blood transfusion. His family is at bedside and confirms that his breathing is his normal pattern. Review of Systems Constitutional: denies: Fever, Chills GI: denies: Vomiting, Diarrhea Skin: denies: Rash Musculoskeletal: denies: Neck pain, Back pain Neurologic: denies: Headache PD PAST MEDICAL HISTORY - Past Medical History Past Medical History: Yes Cardiovascular: Arrhythmia, Other Respiratory: Sleep apnea Endocrine/Autoimmune: None GI: GERD, Other : None HEENT: Chronic vision loss Psych: None Musculoskeletal: None Derm: Eczema, Other - Past Surgical History Past Surgical History: Yes General: Colonoscopy, Other Ortho: Hip replacement, Spine surgery HEENT: Cataracts - Present Medications Home Medications: Ambulatory Orders Medication Instructions Recorded Confirmed Ascorbic Acid [Vitamin C] 500 mg PO DAILY 07/10/23 08/21/23 Cholecalciferol [Vitamin D3] 200 unit PO DAILY 07/10/23 08/21/23 [employer] 450 mg PO DAILY 07/10/23 08/21/23 Fluconazole 200 mg PO DAILY 07/16/23 08/21/23 levoFLOXacin [Levaquin] 500 mg PO DAILY 07/16/23 08/21/23 allopurinoL [Allopurinol] 300 mg PO BID #60 tablet 07/23/23 Pimecrolimus [Elidel] See Rx Instructions .ROUTE 08/07/23 08/21/23 .COMPLEX PRN Venetoclax [Venclexta] 100 mg PO DAILY 08/07/23 08/21/23 Ondansetron Odt [Zofran Odt] 4 mg ORAL Q4HR PRN 08/08/23 08/21/23 Prochlorperazine [Compazine] 5 mg ORAL Q6HR PRN 08/08/23 08/21/23 - Allergies Allergies/Adverse Reactions: Allergies Allergy/AdvReac Type Severity Reaction Status Date / Time hydrocodone bitartrate * Allergy Itching Verified 08/20/23 09:30 [From Vicodin] - Social History Does the pt smoke?: No Smoking Status: Never smoker Does the pt drink ETOH?: No Does the pt have substance abuse?: No PD ED PE NORMAL - Vitals Vital signs reviewed: Yes - General General: Alert and oriented X 3, No acute distress - HEENT HEENT: Moist mucous membranes - Neck Neck: Supple, no meningeal sign - Cardiac Cardiac: RRR, Strong equal pulses - Respiratory Respiratory: Other (Patient is breathing heavily, but lungs are clear.) - Abdomen Abdomen: Soft, Non tender, Non distended - Derm Derm: Warm and dry, No rash - Extremities Extremities: No edema, No calf tenderness / cord - Neuro Neuro: Alert and oriented X 3 - Psych Psych: Normal mood, Normal affect Results - Vitals Vitals: Vital Signs - 24 hr 08/28/23 08/28/23 10:58 11:01 Temperature 36.7 C 36.7 C Heart Rate 71 75 Respiratory 21 18 Rate Blood Pressure 126/64 108/56 L O2 Saturation 98 100 Oxygen O2 Source Room air PD Medical Decision Making - ED course Complexity details: considered differential, d/w patient, d/w family, d/w insurance healthcare consultant ED course: 88-year-old male sent over from the [facility] [facility] clinic for unclear reasons during his blood transfusion. The patient has no complaints and states that everything is at his normal baseline including his breathing. I have placed a call to the [facility] clinic at 12:15 PM to discuss with the physician that the reason for the ER visit. I did speak with Dr. Young, the patient's oncologist. He was not in the [facility] clinic today when the patient was sent over but did receive a phone call saying that the patient "looked punky". The patient was then sent to the emergency department. The patient again confirms that he is in his usual state of health. He does not feel any different than usual. And does not want any further workup at this time. He would like to return to the [facility] clinic to continue his blood transfusion. There is no evidence of acute transfusion reaction. Patient will be discharged back to the [facility] [place] [facility] clinic. This document was made in part using voice recognition software. While efforts are made to proofread this document, sound alike and grammatical errors may occur. Departure - Departure Disposition: 01 Home, Self Care Clinical Impression: AML (acute myeloblastic leukemia) Qualifiers: Leukemia Active/Remission status: without remission Qualified Code(s): C92.00 - Acute myeloblastic leukemia, not having achieved remission Condition: Good Instructions: ED Anemia Type Not Specified Follow-Up: your,doctor in 1 week [Other] Comments: We are going to send you back to the [facility] [facility] clinic today so you can finish a blood transfusion. You are welcome to return to the emergency department at any time, especially for new or worrisome symptoms. You have indicated today that you are not feeling different today than usual. Forms: PCP List
== END 2023-08-28 12:49 | disposition home or self-care (01) ==
LOC: ED 10:53
DX: C92.00 Acute myeloblastic leukemia, not having achieved remission (principal); Z79.899 Other long term (current) drug therapy
CPT/HCPCS: 99281; 99284